=== PATIENT | female | born 1960 | race Caucasian/White ===

== ENCOUNTER 2019-11-01 09:19 | Inpatient (IN) | payer MEDICAID ==
[~2019-11-01] VITALS: Ht 154.9 cm; Wt 71.8 kg
[2019-11-01 11:02] LABS: BASOPHILS % 0.3 % (0.0-2.0); EOSINOPHILS % 0.1 % (0.0-5.0); HEMATOCRIT. 41.9 % (36.0-48.0); HEMOGLOBIN. 14.2 g/dL (12.0-16.0); LYMPHOCYTES % 29.3 % (20.0-50.0); MEAN CORPUSCULAR HEMOGLOBIN 30.9 pg (28.0-32.0); MEAN CORPUSCULAR VOLUME 90.7 fL (81.0-99.0); MEAN PLATELET VOLUME 8.5 fl (7.4-10.4); MONOCYTES % 9.8 % (2.0-8.0); NEUTROPHILS % 60.5 % (40.0-76.0); PLATELET 186 x1000/uL (130-400); RED BLOOD CELL COUNT 4.62 mill/uL (4.2-5.4); RED CELL DISTRIBUTION WIDTH 13.8 % (11.6-14.6)
[2019-11-01 11:07] LABS: CHLORIDE 90 mEq/L (98-107)
[2019-11-01] MEDS ORDERED: LEVOFLOXACIN 750MG PREMIX 150 ML IV ONE (11:30)
[2019-11-01] MEDS ORDERED: MORPHINE SULFATE 2 MG/ML CPJ (NOT FOR IM USE) IV PRN (13:15)
[2019-11-01] MEDS ORDERED: CLONIDINE 0.1MG TABLET PO PRN (13:15)
[2019-11-01] MEDS ORDERED: DIPHENHYDRAMINE 50MG/ML VIAL IV PRN (13:15)
[2019-11-01] MEDS ORDERED: ONDANSETRON HCL 4MG/2ML INJ IV PRN (13:15)
[2019-11-01] MEDS ORDERED: IPRATROPIUM/ALBUTEROL 0.5-3(2.5)MG/3ML NEB HHN PRN (13:15)
[2019-11-01] MEDS ORDERED: AZITHROMYCIN 500 MG in DEXT 5% WATER 250 ML IV SCH (14:00)
[2019-11-01 14:19] LABS: PHOSPHORUS 3.2 mg/dL (2.5-4.9)
[2019-11-01 17:58] VITALS: BP_SYST 116; BP_SYST 117; BP_DIAS 62
[2019-11-01] MEDS ORDERED: CEFTRIAXONE 1 G PREMIX 50 ML IV SCH (18:00)
[2019-11-01] MEDS ORDERED: SIMV-46 PO (18:28)
[2019-11-01] MEDS ORDERED: LISI40TA4 PO (18:28)
[2019-11-01] MEDS ORDERED: ASPI-1497 PO (18:28)
[2019-11-01] MEDS ORDERED: HYDR25TA PO (18:28)
[2019-11-01] MEDS ORDERED: NON FORMULARY PATIENT HOME MED XX SCH (19:15)
[2019-11-01 20:00] VITALS: BP 105/59
[2019-11-01] MEDS: ATORVASTATIN CALCIUM 20MG TABLET PO SCH (20:35)
[2019-11-01] MEDS: CEFTRIAXONE 1,000 MG in DEXTROSE 5% WATER 50 ML IV SCH (20:35)
[2019-11-01] MEDS: ACETAMINOPHEN 325MG TABLET PO PRN (22:16)
[2019-11-01] MEDS ORDERED: DEXTROSE 50% WATER 50ML SYRINGE IV PRN (22:30)
[2019-11-01] MEDS ORDERED: POTASSIUM CHLORIDE 20MEQ TABLET SR PO NR (22:30)
[2019-11-02] VITALS: BP 94/52
[2019-11-02 04:00] VITALS: BP 96/52
[2019-11-02] MEDS: BLOOD SUGAR DIAGNOSTIC STRIP TEST SCH ×4 (07:14→20:34)
[2019-11-02 08:00] VITALS: BP 104/56
[2019-11-02 08:00] LABS: BASOPHILS % 0.6 % (0.0-2.0); EOSINOPHILS % 0.3 % (0.0-5.0); HEMATOCRIT. 40.3 % (36.0-48.0); HEMOGLOBIN. 13.8 g/dL (12.0-16.0); LYMPHOCYTES % 55.7 % (20.0-50.0); MEAN CORPUSCULAR HEMOGLOBIN 30.6 pg (28.0-32.0); MEAN CORPUSCULAR VOLUME 89.6 fL (81.0-99.0); MEAN PLATELET VOLUME 8.6 fl (7.4-10.4); MONOCYTES % 11.4 % (2.0-8.0); PLATELET 175 x1000/uL (130-400); RED CELL DISTRIBUTION WIDTH 13.9 % (11.6-14.6)
[2019-11-02 08:02] LABS: CHLORIDE 93 mEq/L (98-107)
[2019-11-02] MEDS: INSULIN LISPRO 100 UNITS/ML SUBCUT SCH ×4 (08:10→21:00)
[2019-11-02 08:14] LABS: LDL CHOLESTEROL 87 mg/dL (5-100)
[2019-11-02 08:15] LABS: HDL CHOLESTEROL 36 mg/dL (40-59)
[2019-11-02] MEDS: LISINOPRIL 40MG TABLET PO SCH (08:29)
[2019-11-02] MEDS: ASPIRIN 81MG TABLET PO SCH (08:29)
[2019-11-02] MEDS: HYDROCHLOROTHIAZIDE 25MG TABLET PO SCH (08:30)
[2019-11-02] MEDS: AZITHROMYCIN 500 MG in DEXT 5% WATER 250 ML IV SCH ×3 (09:00→20:42)
[2019-11-02 12:00] VITALS: BP 105/56
[2019-11-02] MEDS: POTASSIUM CHLORIDE INJ 40 MEQ in DEXT 5% WATER 250 ML IV SCH ×2 (12:00→13:30)
[2019-11-02] MEDS: ALBUTEROL 6.7GM HFA INHALER ORI SCH (12:30)
[2019-11-02] MEDS: MAGNESIUM 2 G PREMIX 50 ML IV NR ×2 (12:41→13:31)
[2019-11-02] MEDS: ACETAMINOPHEN 325MG TABLET PO PRN (12:42)
[2019-11-02 16:00] VITALS: BP 105/57
[2019-11-02 20:00] VITALS: BP 118/70
[2019-11-02] MEDS: GUAIFENESIN 600MG ER TABLET PO SCH (20:34)
[2019-11-02] MEDS: ATORVASTATIN CALCIUM 20MG TABLET PO SCH (20:34)
[2019-11-02] MEDS: CEFTRIAXONE 1,000 MG in DEXTROSE 5% WATER 50 ML IV SCH (22:51)
[2019-11-03] VITALS: BP 110/66
[2019-11-03] MEDS: ACETAMINOPHEN 325MG TABLET PO PRN (00:52)
[2019-11-03] MEDS: ALBUTEROL 6.7GM HFA INHALER ORI SCH ×4 (02:30→21:05)
[2019-11-03 04:00] VITALS: BP 114/74
[2019-11-03 06:45] LABS: CHLORIDE 98 mEq/L (98-107)
[2019-11-03 07:02] LABS: BASOPHILS % 0.4 % (0.0-2.0); EOSINOPHILS % 0.3 % (0.0-5.0); HEMATOCRIT. 41.9 % (36.0-48.0); HEMOGLOBIN. 14.3 g/dL (12.0-16.0); LYMPHOCYTES % 45.6 % (20.0-50.0); MEAN CORPUSCULAR HEMOGLOBIN 30.5 pg (28.0-32.0); MEAN CORPUSCULAR VOLUME 89.4 fL (81.0-99.0); MEAN PLATELET VOLUME 8.6 fl (7.4-10.4); MONOCYTES % 11.2 % (2.0-8.0); NEUTROPHILS % 42.5 % (40.0-76.0); PLATELET 199 x1000/uL (130-400); RED BLOOD CELL COUNT 4.69 mill/uL (4.2-5.4); RED CELL DISTRIBUTION WIDTH 13.3 % (11.6-14.6)
[2019-11-03] MEDS: BLOOD SUGAR DIAGNOSTIC STRIP TEST SCH ×4 (07:44→21:00)
[2019-11-03] MEDS: INSULIN LISPRO 100 UNITS/ML SUBCUT SCH ×3 (07:45→17:13)
[2019-11-03 08:00] VITALS: BP 114/65
[2019-11-03] MEDS: HYDROCHLOROTHIAZIDE 25MG TABLET PO SCH (08:04)
[2019-11-03] MEDS: ASPIRIN 81MG TABLET PO SCH (08:04)
[2019-11-03] MEDS: GUAIFENESIN 600MG ER TABLET PO SCH ×2 (08:04→22:01)
[2019-11-03] MEDS: LISINOPRIL 40MG TABLET PO SCH (08:12)
[2019-11-03] MEDS: AZITHROMYCIN 500 MG in DEXT 5% WATER 250 ML IV SCH (10:09)
[2019-11-03 12:00] VITALS: BP 120/60
[2019-11-03 16:00] VITALS: BP 116/70
[2019-11-03 20:00] VITALS: BP 182/107
[2019-11-03] MEDS: ATORVASTATIN CALCIUM 20MG TABLET PO SCH (22:01)
[2019-11-03] MEDS: CEFTRIAXONE 1,000 MG in DEXTROSE 5% WATER 50 ML IV SCH (22:01)
[2019-11-04 00:30] VITALS: BP 192/117
[2019-11-04 04:00] VITALS: BP 100/42
[2019-11-04] MEDS: INSULIN LISPRO 100 UNITS/ML SUBCUT SCH ×3 (06:15→12:15)
[2019-11-04] MEDS: BLOOD SUGAR DIAGNOSTIC STRIP TEST SCH ×2 (06:16→11:45)
[2019-11-04 08:00] VITALS: BP 122/62
[2019-11-04] MEDS: AZITHROMYCIN 500 MG in DEXT 5% WATER 250 ML IV SCH (08:35)
[2019-11-04] MEDS: ASPIRIN 81MG TABLET PO SCH (08:35)
[2019-11-04] MEDS: GUAIFENESIN 600MG ER TABLET PO SCH (08:35)
[2019-11-04] MEDS: LISINOPRIL 40MG TABLET PO SCH (08:35)
[2019-11-04] MEDS ORDERED: AMLODIPINE 5MG TABLET PO SCH (09:00)
[2019-11-04 11:10] LABS: CHLORIDE 95 mEq/L (98-107)
[2019-11-04] MEDS ORDERED: SIMETHICONE 80MG TABLET CHEW PO PRN (11:30)
[2019-11-04] MEDS ORDERED: PSYLLIUM SEED PACKET PO SCH (13:00)
[2019-11-04 16:00] VITALS: BP 108/68
[2019-11-04] MEDS ORDERED: PSYL575P22 MT (16:40)
[2019-11-04] MEDS ORDERED: AMLO5TAB88 PO (16:40)
[2019-11-04] MEDS ORDERED: SIME80TA15 MT (16:41)
[2019-11-04 17:17] VITALS: BP 108/68
== END 2019-11-04 18:10 | disposition home or self-care (01) | DRG 139 ==
LOC: ER 09:19 → 6WST 12:05 → EDBEDREQ 12:08 → EDBEDREQTM 12:08 → ENRESERV 15:34 → 7WST 17:56 → 5WST 11-03 22:26
PROVIDERS: ADMIT Internal Medicine; ATTEND Internal Medicine
DX: J18.9 Pneumonia, unspecified organism (principal); J96.00 Acute respiratory failure, unspecified whether with hypoxia or hypercapnia; K52.9 Noninfective gastroenteritis and colitis, unspecified; E87.1 Hypo-osmolality and hyponatremia; E87.6 Hypokalemia; I10 Essential (primary) hypertension; M48.07 Spinal stenosis, lumbosacral region; E78.00 Pure hypercholesterolemia, unspecified; Z20.828 Contact with and (suspected) exposure to other viral communicable diseases; D72.810 Lymphocytopenia; E11.65 Type 2 diabetes mellitus with hyperglycemia; E86.1 Hypovolemia; K57.90 Diverticulosis of intestine, part unspecified, without perforation or abscess without bleeding; K76.0 Fatty (change of) liver, not elsewhere classified; Z79.899 Other long term (current) drug therapy; Z79.82 Long term (current) use of aspirin
CPT/HCPCS: 36415; 71045; 74176; 76700; 80048; 80053; 80061; 80076; 82728; 82962; 83036; 83615; 83735; 83880; 84100; 84145; 84443; 84484; 85025; 85379; 86141; 87635; 93005; 93970; 94640; 99291; J0456; J0696; J1956; J2405; J3475; J3480; J7060

== ENCOUNTER 2023-02-21 06:52 | Emergency (ER) | payer MEDICAID, OTHER ==
[~2023-02-21] VITALS: Ht 152.4 cm; Wt 82.0 kg
[~2023-02-21 06:52] MED LIST: AMLO5TAB88 PO; ASPI-1497 PO; LISI40TA13 PO; PSYL575P22 MT; SIME80TA15 MT; SIMV-46 PO
[2023-02-21 07:20] VITALS: O2SAT 99
[2023-02-21] MEDS ORDERED: KETOROLAC 60MG/2ML VIAL IM ONE (08:45)
[2023-02-21 09:31] LABS: CLARITY URINE CLEAR (CLEAR); COLOR URINE YELLOW (YELLOW)
[2023-02-21 09:32] LABS: GLUCOSE URINE NEGATIVE (NEGATIVE); KETONES URINE NEGATIVE (NEGATIVE); LEUKOCYTE ESTERASE URINE NEGATIVE (NEGATIVE); NITRITE URINE NEGATIVE (NEGATIVE); OCCULT BLOOD URINE NEGATIVE (NEGATIVE); PH URINE 6.5 (4.5-8.0); PROTEIN URINE NEGATIVE (NEGATIVE); UROBILINOGEN URINE 0.2 E.U./dL (0.2-1.0)
[2023-02-21] MEDS ORDERED: TOPUD MT (09:59)
[2023-02-21 10:36] VITALS: BP 120/72; PULSE 91; RESP 16; TEMP 98.6
== END 2023-02-21 10:37 | disposition home or self-care (01) ==
LOC: ER 06:52
DX: M54.50 Low back pain, unspecified (principal); E11.9 Type 2 diabetes mellitus without complications; I10 Essential (primary) hypertension
CPT/HCPCS: 81003; 72100; 96372; 99284; J1885; Z7610